=== PATIENT | female | born 1995 | race Caucasian/White ===

== ENCOUNTER 2019-01-30 00:18 | Inpatient (IN) | payer BC ==
[2019-01-30] MEDS ORDERED: Misoprostol 400 MCG (4 X 100 MCG TAB) RECTAL PRN (00:32)
[2019-01-30] MEDS ORDERED: Lactated Ringers 500 ML IV ONE (00:32)
[2019-01-30] MEDS ORDERED: Carboprost Tromethamine 250 MCG/1 ML Amp IM PRN (00:32)
[2019-01-30] MEDS ORDERED: Sodium Chloride 0.9% 10 ML Syringe FLUSH PRN (00:32)
[2019-01-30] MEDS ORDERED: Tranexamic Acid 1,000 MG in Sodium Chloride 0.9% 100 ML IV PRN (00:32)
[2019-01-30] MEDS ORDERED: Lidocaine 1% 30 ML SDV INJECT PRN (00:32)
[2019-01-30] MEDS ORDERED: Methylergonovine 0.2 MG/1 ML Amp IM PRN (00:32)
[2019-01-30] MEDS ORDERED: Ondansetron 4 MG/2 ML SDV IV PRN (00:32)
[2019-01-30] MEDS ORDERED: fentaNYL 100 MCG/2 ML SDV IVPUSH PRN (00:32)
[2019-01-30] MEDS ORDERED: Nalbuphine 10 MG/1 ML Vial IM PRN (00:36)
[2019-01-30] MEDS ORDERED: Nalbuphine 10 MG/1 ML Vial IV PRN (00:36)
--- NOTE | 2019-01-30 00:38 | PCM.LDHP ---
L&D History of Present Illness - General Date of Service: 02/01/19 Admit Problem/Dx: Patient Status Order with Admit Dx/Problem 01/30/19 00:32 Patient Status [ADT] Routine Admission Diagnosis/Problem Admission Diagnosis/Problem care Source of Information: Patient History Limitations: Reports: No Limitations - History of Present Illness Introduction:: 23-year-old at 40w0d presents to L&D for elective IOL at term. Patient has been feeling well. Baby has been active. Some [place] contractions but nothing regular. No vaginal bleeding or leaking of fluids. No headache or vision changes. - Related Data Allergies/Adverse Reactions: Allergies Allergy/AdvReac Type Severity Reaction Status Date / Time seasonal Allergy Sneezing Uncoded 03/03/15 22:17 Home Medications: Home Meds Acetaminophen [Tylenol] 650 mg PO Q4H PRN tablet 02/01/19 [Rx] Docusate Sodium [Colace] 100 mg PO BID PRN cap 02/01/19 [Rx] Ibuprofen [Motrin] 800 mg PO Q8H PRN tablet 02/01/19 [Rx] Vit with Ca/FA/Iron [ Plus Iron] 1 each PO DAILY tablet [Rx] Past Medical History Psychiatric History: Reports: Anxiety - Past Surgical History HEENT Surgical History: Reports: Myringotomy w Tube(s) (x2), Tonsillectomy GI Surgical History: Reports: Appendectomy Social & Family History - Family History Oncologic: Reports: Skin (Mother) - Tobacco Use Smoking Status *Q: Never Smoker - Caffeine Use Caffeine Use: Reports: Soda - Alcohol Use Alcohol Use Frequency: Not Used in Over 6 Months - Recreational Drug Use Recreational Drug Use: No - Sexual History Sexual History: Reports: None - Living Situation & Occupation Living situation: Reports: Occupation: Employed H&P Review of Systems - Review of Systems: Review Of Systems: See Below General: Reports: No Symptoms HEENT: Reports: No Symptoms Pulmonary: Reports: No Symptoms Cardiovascular: Reports: No Symptoms Gastrointestinal: Reports: No Symptoms Genitourinary: Reports: No Symptoms Musculoskeletal: Reports: No Symptoms Skin: Reports: No Symptoms Psychiatric: Reports: No Symptoms Neurological: Reports: No Symptoms L&D Exam - Exam Exam: See Below - OB Specific Movement: Active Heart Tones: Present Heart Tones per Min: 135 Heart Rate (FHR) Variability: Moderate (6-25 bmp) Presentation: Vertex - Fay Score Fay Score Cervix Position: Posterior Fay Score Consistency: Soft Fay Score Effacement: 51-70% Fay Score Dilation: 3-4 cm Fay Score Infant's Station: -2 Fay Score Total: 7 - Exam General: Alert, Oriented HEENT: Posterior Pharynx Clear Lungs: Clear to Auscultation, Normal Respiratory Effort Cardiovascular: Regular Rate, Regular Rhythm. No: Systolic Murmur, Diastolic Murmur Extremities: Pedal Edema (Trace bilaterally) Skin: Warm, Dry, Intact - Patient Data Result Diagrams: 01/30/19 01:04 - Problem List (1) care in third trimester SNOMED Code(s): 665441324, 48159421, 69984200, 853014929, 592011675 ICD Code: Z34.93 - ENCNTR FOR SUPRVSN OF NORMAL PREG, UNSP, THIRD TRIMESTER Status: Acute Current Visit: Yes Problem List Initiated/Reviewed/Updated: Yes Orders Last 24hrs: Active Orders 24 hr Category Date Time Status Patient Status [ADT] Routine ADT 01/30/19 00:32 Ordered Communication Order [RC] ASDIRECTED Care 01/30/19 00:32 Ordered Communication Order [RC] ASDIRECTED Care 01/30/19 00:34 Ordered Communication Order [RC] ASDIRECTED Care 01/30/19 00:34 Ordered Communication Order [RC] ASDIRECTED Care 01/30/19 00:34 Ordered Communication Order [RC] ASDIRECTED Care 01/30/19 00:34 Ordered Communication Order [RC] ASDIRECTED Care 01/30/19 00:34 Ordered Heart Tones [RC] PER UNIT ROUTINE Care 01/30/19 00:32 Ordered Notify Provider Vital Signs OB [RC] ASDIRECTED Care 01/30/19 00:32 Ordered Notify Provider [RC] PRN Care 01/30/19 00:32 Ordered Notify Provider [RC] PRN Care 01/30/19 00:34 Ordered Notify Provider [RC] PRN Care 01/30/19 00:34 Ordered Notify Provider [RC] STAT Care 01/30/19 00:34 Ordered POC Labs [RC] ASDIRECTED Care 01/30/19 00:32 Ordered Pump Management, Intrathecal [RC] ASDIRECTED Care 01/30/19 00:32 Ordered Up ad Mamie [RC] ASDIRECTED Care 01/30/19 00:32 Ordered Vaginal Exam [RC] PRN Care 01/30/19 00:34 Ordered Vital Signs [RC] PER UNIT ROUTINE Care 01/30/19 00:32 Ordered Clear Liquid Diet [DIET] Diet 01/30/19 Lunch Ordered Regular Diet [DIET] Diet 01/30/19 Breakfast Ordered CBC W/O DIFF,HEMOGRAM [HEME] Routine Lab 01/30/19 00:32 Ordered Acetaminophen [Tylenol] Med 01/30/19 00:32 Ordered 650 mg PO Q4H PRN Carboprost Tromethamine [Hemabate DS] Med 01/30/19 00:32 Ordered 250 mcg IM ASDIRECTED PRN Lactated Ringers @ 125 MLS/HR(1000ml) Med 01/30/19 00:45 Ordered Lactated Ringers [Ringers, Lactated] 1,000 ml IV ASDIRECTED Lactated Ringers [Ringers, Lactated] 500 ml Med 01/30/19 00:32 Ordered IV .BOLUS Lidocaine 1% [Xylocaine-MPF 1%] Med 01/30/19 00:32 Ordered 30 ml INJECT ASDIRECTED PRN Methylergonovine [Methergine] Med 01/30/19 00:32 Ordered 0.2 mg IM ASDIRECTED PRN Nalbuphine [Nubain] Med 01/30/19 00:36 Ordered 10 mg IV Q3H PRN Nalbuphine [Nubain] Med 01/30/19 00:36 Ordered 20 mg IM Q3H PRN Ondansetron [Zofran] Med 01/30/19 00:32 Ordered 4 mg IV Q4H PRN Oxytocin 30 Units in NS @ 2 MUNITS/MIN(500ml) Med 01/30/19 00:45 Ordered Oxytocin/Normal Saline [Pitocin in NS 30 UNIT/500 ML] 30 unit in 500 ml IV TITRATE Sodium Chloride 0.9% [Saline Flush] Med 01/30/19 00:32 Ordered 10 ml FLUSH ASDIRECTED PRN Tranexamic Acid [Cyklokapron] 1,000 mg Med 01/30/19 00:32 Ordered Sodium Chloride 0.9% [Normal Saline] 100 ml IV ONETIME fentaNYL [Sublimaze] Med 01/30/19 00:32 Ordered 50 mcg IVPUSH Q1H PRN miSOPROStol [Cytotec] Med 01/30/19 00:34 Ordered 25 mcg VAG Q4H PRN miSOPROStol [Cytotec] Med 01/30/19 00:32 Ordered 800 mcg RECTAL ASDIRECTED PRN Saline Lock Insert [OM.PC] Routine Oth 01/30/19 00:32 Ordered Resuscitation Status Routine Resus Stat 01/30/19 00:32 Ordered Medication Orders Acetaminophen (Tylenol) 650 mg PO Q4H PRN PRN Reason: Pain (Mild 1-3) and fever Carboprost Tromethamine (Hemabate Ds) 250 mcg IM ASDIRECTED PRN PRN Reason: HEMORRHAGE Fentanyl (Sublimaze) 50 mcg IVPUSH Q1H PRN PRN Reason: Pain (moderate 4-6) Lactated Ringer's (Ringers, Lactated) 500 mls @ 999 mls/hr IV .BOLUS ONE Stop: 01/30/19 01:02 Tranexamic Acid 1,000 mg/ (Sodium Chloride) 110 mls @ 660 mls/hr IV ONETIME PRN PRN Reason: Bleeding Lactated Ringer's (Ringers, Lactated) 1,000 mls @ 125 mls/hr IV ASDIRECTED YE Oxytocin/Sodium Chloride (Pitocin In Ns 30 Unit/500 Ml) 30 unit in 500 mls @ 2 mls/hr IV TITRATE YE; Protocol Lidocaine HCl (Xylocaine-Mpf 1%) 30 ml INJECT ASDIRECTED PRN PRN Reason: Perineal Repair Methylergonovine Maleate (Methergine) 0.2 mg IM ASDIRECTED PRN PRN Reason: Hemorrhage Misoprostol (Cytotec) 800 mcg RECTAL ASDIRECTED PRN PRN Reason: Hemorrhage Misoprostol (Cytotec) 25 mcg VAG Q4H PRN PRN Reason: cervical ripening Nalbuphine HCl (Nubain) 20 mg IM Q3H PRN PRN Reason: Pain Nalbuphine HCl (Nubain) 10 mg IV Q3H PRN PRN Reason: Pain Ondansetron HCl (Zofran) 4 mg IV Q4H PRN PRN Reason: Nausea/Vomiting Sodium Chloride (Saline Flush) 10 ml FLUSH ASDIRECTED PRN PRN Reason: Keep Vein Open Assessment/Plan Comment:: 23-year-old at 40w0d presents for elective IOL Cytotec placed at 0100. Patient was checked at 0515 and had minimal change so a 2nd dose of Cytotec was placed. Patient started to feel uncomfortable around 0715. Patient was checked at 0820 and was noted to be 7 cm dilated with a bulging bag. As patient desires an intrathecal, AROM was not performed at this time. [employer] was contacted for intrathecal placement. AROM when able. Anticipate . Gabbie Dillard MD
[2019-01-30] MEDS ORDERED: Oxytocin/Normal Saline 30 UNIT/500 ML BAG IV SCH (00:45)
[2019-01-30] MEDS: Misoprostol 25 MCG (1/4 of 100 MCG) Tab VAG PRN ×2 (01:19→05:18)
[2019-01-30] MEDS: Acetaminophen 325 MG Tab PO PRN ×2 (07:38→19:52)
[2019-01-30] MEDS ORDERED: fentaNYL 100 MCG/2 ML SDV ONE (08:51)
[2019-01-30] MEDS ORDERED: EPINEPHrine 1 MG/1 ML Amp ONE (08:51)
[2019-01-30] MEDS ORDERED: Sodium Bicarbonate 4.2% 2.5 MEQ/5 ML SDV ONE (08:52)
[2019-01-30] MEDS: Lactated Ringers 1,000 ML IV SCH ×2 (08:52→09:14)
[2019-01-30] MEDS ORDERED: Benzocaine/Menthol 20%-0.5% Spray 56 GM Canister TOP PRN (11:36)
[2019-01-30] MEDS ORDERED: Simethicone 80 MG Tab.Chew PO PRN (11:36)
[2019-01-30] MEDS ORDERED: Oxytocin 10 Units/1 ML SDV IM PRN (11:36)
--- NOTE | 2019-01-30 11:38 | PCM.DEL ---
L & D Note - General Info Date of Service: 01/30/19 Mother's Due Date: 01/30/19 - Delivery Note Labor: Augmented by ARM Cervical Ripening Method: Misoprostil Delivery Outcome: Livebirth Delivery Method: Spontaneous Vaginal Delivery-Single Presentation: Vertex Nuchal Cord: None (Body cord was noted) Anesthesia Type: Intrathecal Amniotic Fluid Description: Clear Episiotomy Type: None Laceration: 2nd Degree, Perineal Suture type: Vicryl Suture size: 3-0 Placenta: Intact, Spontaneous Cord: 3 Vessels Estimated Blood Loss: 200 : Bulb Syringe, Stimulated, Warmed Provider: Gabbie Dillard Score 1 min: 7 Score 5 min: 9 Delivery Comments (Free Text/Narrative):: 23-year-old presented to L&D for elective IOL at 40w0d. Cytotec x2 was used for cervical ripening. About 2 hours after the 2nd dose, patient started experiencing increased contractions. At 0820, patient underwent a cervical exam and was noted to be 7 cm with a bulging forebag. Patient received an intrathecal shortly after and rapidly progressed to complete dilation with head at +2 station. AROM was performed. Patient then pushed for about 8 minutes then delivered a viable male infant. Umbilical cord was tangled around infant's arms and back. Cord was reduced, and infant was placed on patient's abdomen. Apgars were noted to be 7 and 9 at 1 and 5 minutes respectively. Cord was clamped x2 and cut by 's father. Cord blood was collected. Placenta delivered about 3 minutes after delivery of the infant. It was noted to be intact. Pitocin was started, and uterus was noted to be to firm. Bilateral periurethral abrasions were noted. A second degree perineal laceration was noted and was repaired with 3-0 Vicryl in the usual fashion. Uterus was again assessed and noted to be firm. Bleeding was appropriate. Patient tolerated the procedure well, and there were no immediate complications. Induction Criteria - Fay Score Fay Score Dilation: 3-4 cm Fay Score Effacement: 60-70% Fay Score Infant's Station: -2 Fay Score Consistency: Soft Fay Score Cervix Position: Posterior Fay Score Total: 7 Fay Score Presenting Part: Reports: Cephalic - Induction Gestational Age >/= 39 wks: Yes Estimated Pelvis: Reports: Adequate Reassuring Monitoring Strip: Yes Absence of Tachy Systole: Yes - General Info Date of Service: 02/01/19 - Patient Data Vitals - Most Recent: Last Vital Signs Temp 36.4 C 01/30/19 04:53 Pulse 57 L 01/30/19 04:53 Resp 18 01/30/19 04:53 BP 115/64 01/30/19 04:53 Pulse Ox Weight - Most Recent: 88.451 kg Lab Results Last 24 Hours: Laboratory Results - last 24 hr 01/30/19 Range/Units 01:04 WBC 8.4 (5.0-10.0) 10^3/uL RBC 3.92 L (4.2-5.4) 10^6/uL Hgb 11.5 L (12.0-16.0) g/dL Hct 35.8 L (37.0-47.0) % MCV 91.3 (80-100) fL MCH 29.3 (27.0-34.0) pg MCHC 32.1 L (33.0-35.0) g/dL Plt Count 200 (150-450) 10^3/uL Med Orders - Current: Current Medications Acetaminophen (Tylenol) 650 mg PO Q4H PRN PRN Reason: Pain (Mild 1-3) and fever Last Admin: 01/30/19 07:38 Dose: 650 mg Carboprost Tromethamine (Hemabate Ds) 250 mcg IM ASDIRECTED PRN PRN Reason: HEMORRHAGE Tranexamic Acid 1,000 mg/ (Sodium Chloride) 110 mls @ 660 mls/hr IV ONETIME PRN PRN Reason: Bleeding Oxytocin/Sodium Chloride (Pitocin In Ns 30 Unit/500 Ml) 30 unit in 500 mls @ 2 mls/hr IV TITRATE YE; Protocol Methylergonovine Maleate (Methergine) 0.2 mg IM ASDIRECTED PRN PRN Reason: Hemorrhage Misoprostol (Cytotec) 800 mcg RECTAL ASDIRECTED PRN PRN Reason: Hemorrhage Misoprostol (Cytotec) 25 mcg VAG Q4H PRN PRN Reason: cervical ripening Last Admin: 01/30/19 05:18 Dose: 25 mcg Ondansetron HCl (Zofran) 4 mg IV Q4H PRN PRN Reason: Nausea/Vomiting Last Admin: 01/30/19 08:51 Dose: 4 mg Sodium Chloride (Saline Flush) 10 ml FLUSH ASDIRECTED PRN PRN Reason: Keep Vein Open Discontinued Medications Epinephrine HCl (Adrenalin) Confirm Administered Dose 1 mg .ROUTE .STK-MED ONE Stop: 01/30/19 08:52 Fentanyl (Sublimaze) 50 mcg IVPUSH Q1H PRN PRN Reason: Pain (moderate 4-6) Fentanyl (Sublimaze) Confirm Administered Dose 100 mcg .ROUTE .STK-MED ONE Stop: 01/30/19 08:52 Lactated Ringer's (Ringers, Lactated) 500 mls @ 999 mls/hr IV .BOLUS ONE Stop: 01/30/19 01:02 Lactated Ringer's (Ringers, Lactated) 1,000 mls @ 125 mls/hr IV ASDIRECTED YE Last Admin: 01/30/19 09:14 Dose: 125 mls/hr Lidocaine HCl (Xylocaine-Mpf 1%) 30 ml INJECT ASDIRECTED PRN PRN Reason: Perineal Repair Nalbuphine HCl (Nubain) 20 mg IM Q3H PRN PRN Reason: Pain Nalbuphine HCl (Nubain) 10 mg IV Q3H PRN PRN Reason: Pain Sodium Bicarbonate (Sodium Bicarbonate 4.2%) Confirm Administered Dose 0.5 meq .ROUTE .STK-MED ONE Stop: 01/30/19 08:53 Sufentanil Citrate (Sufenta) Confirm Administered Dose 50 mcg .ROUTE .STK-MED ONE Stop: 01/30/19 08:52 - Exam General: Alert, Oriented Lungs: Clear to Auscultation, Normal Respiratory Effort Cardiovascular: Regular Rate, Regular Rhythm, No Murmurs Extremities: Pedal Edema (Trace bilaterally) Skin: Warm, Dry, Intact Neurological: No New Focal Deficit - Problem List & Annotations (1) (normal spontaneous vaginal delivery) SNOMED Code(s): 56478044, 453216127 Code(s): O80 - ENCOUNTER FOR FULL-TERM UNCOMPLICATED DELIVERY Status: Acute Current Visit: Yes (2) Perineal laceration during delivery, delivered SNOMED Code(s): 986271075 Code(s): O70.9 - PERINEAL LACERATION DURING DELIVERY, UNSPECIFIED Status: Acute Current Visit: Yes (3) care in third trimester SNOMED Code(s): 324349936, 35035401, 93486971, 500731346, 020189701 Code(s): Z34.93 - ENCNTR FOR SUPRVSN OF NORMAL PREG, UNSP, THIRD TRIMESTER Status: Acute Current Visit: Yes - Problem List Review Problem List Initiated/Reviewed/Updated: Yes - My Orders Last 24 Hours: My Active Orders 01/30/19 00:32 Patient Status [ADT] Routine Notify Provider Vital Signs OB [RC] ASDIRECTED POC Labs [RC] ASDIRECTED Pump Management, Intrathecal [RC] ASDIRECTED Up ad Mamie [RC] ASDIRECTED Vital Signs [RC] PER UNIT ROUTINE Acetaminophen [Tylenol] 650 mg PO Q4H PRN Carboprost Tromethamine [Hemabate DS] 250 mcg IM ASDIRECTED PRN Methylergonovine [Methergine] 0.2 mg IM ASDIRECTED PRN Ondansetron [Zofran] 4 mg IV Q4H PRN Sodium Chloride 0.9% [Saline Flush] 10 ml FLUSH ASDIRECTED PRN Tranexamic Acid [Cyklokapron] 1,000 mg Sodium Chloride 0.9% [Normal Saline] 100 ml IV ONETIME miSOPROStol [Cytotec] 800 mcg RECTAL ASDIRECTED PRN Saline Lock Insert [OM.PC] Routine Resuscitation Status Routine 01/30/19 00:34 Communication Order [RC] ASDIRECTED Communication Order [RC] ASDIRECTED Communication Order [RC] ASDIRECTED Communication Order [RC] ASDIRECTED Communication Order [RC] ASDIRECTED Notify Provider [RC] PRN Notify Provider [RC] PRN Notify Provider [RC] STAT Vaginal Exam [RC] PRN miSOPROStol [Cytotec] 25 mcg VAG Q4H PRN 01/30/19 00:45 Oxytocin/Normal Saline [Pitocin in NS 30 UNIT/500 ML] 30 unit in 500 ml IV TITRATE 01/30/19 11:36 Vital Signs [RC] PFP Consult to Diesel Powerplant Supervisor [CONS] Routine Benzocaine/Menthol [Dermoplast Pain Relief [place]] See Dose Instructions TOP Q4H PRN Docusate Sodium [Colace] 100 mg PO BID PRN Ibuprofen [Motrin] 800 mg PO Q8H PRN Oxytocin [Pitocin] 10 unit IM ONETIME PRN Simethicone 80 mg PO Q4H PRN Assess Lochia [WOMSER] Per Unit Routine Assess Uterine Involution [WOMSER] Per Unit Routine Breast Pump [WOMSER] Per Unit Routine Ice Therapy [OM.PC] Per Unit Routine Perineal Care [OM.PC] Per Unit Routine Sitz Bath [OM.PC] Per Unit Routine 01/30/19 Lunch Regular Diet [DIET] 01/31/19 09:00 Vit with Ca/FA/Iron [ Plus Iron] 1 each PO DAILY - Assessment Assessment:: 23-year-old, now , status post at 40w0d - Plan Plan:: 1. Initiate routine cares. 2. Mother plans to breastfeed. consultation placed. 3. Anticipate discharge 01/30/19 Gabbie Dillard MD
[2019-01-30] MEDS: Ibuprofen 800 MG Tab PO PRN (16:23)
[2019-01-31] MEDS: Ibuprofen 800 MG Tab PO PRN ×3 (01:05→18:03)
[2019-01-31] MEDS: Acetaminophen 325 MG Tab PO PRN ×4 (01:06→18:03)
[2019-01-31] MEDS: Prenatal Multivitamin with Calcium/Folic Acid/Iron Tab PO SCH (08:12)
[2019-01-31] MEDS: Docusate Sodium 100 MG Cap PO PRN ×2 (08:12→20:08)
--- NOTE | 2019-01-31 14:57 | PCM.PNPP ---
- General Info Date of Service: 01/31/19 Subjective Update: 23-year-old now PPD#1 status post . Patient is feeling well. Pain is well controlled. Vaginal bleeding is decreasing. Patient is but is having difficulties. She notes significant pain with nursing. Patient does have inverted nipples. She is applying lanolin and using soothies between feeds. She is working with nursing staff and . She does desire to continue to work with . Functional Status: Reports: Pain Controlled, Tolerating Diet, Urinating. Denies : New Symptoms - Review of Systems General: Reports: No Symptoms HEENT: Reports: No Symptoms Pulmonary: Reports: No Symptoms Cardiovascular: Reports: No Symptoms Gastrointestinal: Reports: No Symptoms Genitourinary: Reports: No Symptoms Skin: Reports: No Symptoms - General Info Date of Service: 01/31/19 - Patient Data Vital Signs - Most Recent: Last Vital Signs Temp 36.6 C 01/31/19 08:00 Pulse 63 01/31/19 08:00 Resp 18 01/31/19 08:00 BP 120/78 01/31/19 08:00 Pulse Ox 99 01/31/19 08:00 Weight - Most Recent: 88.451 kg I&O - Last 24 Hours: Intake & Output 01/30/19 01/31/19 01/31/19 22:59 06:59 14:59 Intake Total 2200 Balance 2200 Med Orders - Current: Current Medications Acetaminophen (Tylenol) 650 mg PO Q4H PRN PRN Reason: Pain (Mild 1-3) and fever Last Admin: 01/31/19 14:09 Dose: 650 mg Benzocaine/Menthol (Dermoplast Pain Relief [place]) 0 gm TOP Q4H PRN PRN Reason: Perineal comfort measures Last Admin: 01/30/19 13:53 Dose: 1 applic Carboprost Tromethamine (Hemabate Ds) 250 mcg IM ASDIRECTED PRN PRN Reason: HEMORRHAGE Docusate Sodium (Colace) 100 mg PO BID PRN PRN Reason: Constipation Last Admin: 01/31/19 08:12 Dose: 100 mg Tranexamic Acid 1,000 mg/ (Sodium Chloride) 110 mls @ 660 mls/hr IV ONETIME PRN PRN Reason: Bleeding Oxytocin/Sodium Chloride (Pitocin In Ns 30 Unit/500 Ml) 30 unit in 500 mls @ 2 mls/hr IV TITRATE YE; Protocol Last Titration: 01/30/19 13:05 Dose: 0 mls/hr Ibuprofen (Motrin) 800 mg PO Q8H PRN PRN Reason: Mild Pain or Fever, use 2nd Last Admin: 01/31/19 08:12 Dose: 800 mg Methylergonovine Maleate (Methergine) 0.2 mg IM ASDIRECTED PRN PRN Reason: Hemorrhage Misoprostol (Cytotec) 800 mcg RECTAL ASDIRECTED PRN PRN Reason: Hemorrhage Misoprostol (Cytotec) 25 mcg VAG Q4H PRN PRN Reason: cervical ripening Last Admin: 01/30/19 05:18 Dose: 25 mcg Ondansetron HCl (Zofran) 4 mg IV Q4H PRN PRN Reason: Nausea/Vomiting Last Admin: 01/30/19 08:51 Dose: 4 mg Oxytocin (Pitocin) 10 unit IM ONETIME PRN PRN Reason: Bleeding Prenat Multivit/[place]/Iron/Folic Ac ( Plus Iron) 1 each PO DAILY YE Last Admin: 01/31/19 08:12 Dose: 1 each Simethicone (Simethicone) 80 mg PO Q4H PRN PRN Reason: Gas Sodium Chloride (Saline Flush) 10 ml FLUSH ASDIRECTED PRN PRN Reason: Keep Vein Open Discontinued Medications Epinephrine HCl (Adrenalin) Confirm Administered Dose 1 mg .ROUTE .STK-MED ONE Stop: 01/30/19 08:52 Last Admin: 01/30/19 12:35 Dose: Not Given Fentanyl (Sublimaze) 50 mcg IVPUSH Q1H PRN PRN Reason: Pain (moderate 4-6) Fentanyl (Sublimaze) Confirm Administered Dose 100 mcg .ROUTE .STK-MED ONE Stop: 01/30/19 08:52 Last Admin: 01/30/19 12:35 Dose: Not Given Lactated Ringer's (Ringers, Lactated) 500 mls @ 999 mls/hr IV .BOLUS ONE Stop: 01/30/19 01:02 Last Admin: 01/30/19 17:52 Dose: Not Given Lactated Ringer's (Ringers, Lactated) 1,000 mls @ 125 mls/hr IV ASDIRECTED YE Last Admin: 01/30/19 09:14 Dose: 125 mls/hr Lidocaine HCl (Xylocaine-Mpf 1%) 30 ml INJECT ASDIRECTED PRN PRN Reason: Perineal Repair Nalbuphine HCl (Nubain) 20 mg IM Q3H PRN PRN Reason: Pain Nalbuphine HCl (Nubain) 10 mg IV Q3H PRN PRN Reason: Pain Sodium Bicarbonate (Sodium Bicarbonate 4.2%) Confirm Administered Dose 0.5 meq .ROUTE .STK-MED ONE Stop: 01/30/19 08:53 Last Admin: 01/30/19 12:35 Dose: Not Given Sufentanil Citrate (Sufenta) Confirm Administered Dose 50 mcg .ROUTE .STK-MED ONE Stop: 01/30/19 08:52 Last Admin: 01/30/19 12:35 Dose: Not Given - Interaction Disposition, : in Room with Family Infant Interaction: Holding Feeding: Attempted ; Nursed Fair/Poor Support Person: Significant Other - Recovery Exam Fundal Tone: Firm Fundal Level: At Umbilicus Fundal Placement: Midline Lochia Amount: Scant Lochia Color: Brownish Perineum Description: Intact, Minimal Bruising/Swelling Episiotomy/Laceration: Approximated Bladder Status: Nonpalpable, Voiding - Exam General: Alert, Oriented Lungs: Clear to Auscultation, Normal Respiratory Effort Cardiovascular: Regular Rate, Regular Rhythm, No Murmurs Skin: Warm, Dry, Intact - Problem List & Annotations (1) (normal spontaneous vaginal delivery) SNOMED Code(s): 17181190, 439072463 Code(s): O80 - ENCOUNTER FOR FULL-TERM UNCOMPLICATED DELIVERY Status: Acute Current Visit: Yes (2) Perineal laceration during delivery, delivered SNOMED Code(s): 947882553 Code(s): O70.9 - PERINEAL LACERATION DURING DELIVERY, UNSPECIFIED Status: Acute Current Visit: Yes (3) care in third trimester SNOMED Code(s): 870055053, 48822394, 91717574, 085727507, 709017155 Code(s): Z34.93 - ENCNTR FOR SUPRVSN OF NORMAL PREG, UNSP, THIRD TRIMESTER Status: Acute Current Visit: Yes - Problem List Review Problem List Initiated/Reviewed/Updated: Yes - My Orders Last 24 Hours: My Active Orders 01/31/19 09:00 Vit with Ca/FA/Iron [ Plus Iron] 1 each PO DAILY - Assessment Assessment:: 23-year-old, now , PPD#1 s/p at 40w0d - Plan Plan:: 1. Continue cares 2. Due to nipple pain, patient will pump for now and feed baby pumped colostrum with formula supplementation as needed 3. Anticipate discharge 02/01/19 Gabbie Dillard MD
[2019-02-01] MEDS: Ibuprofen 800 MG Tab PO PRN ×2 (01:50→10:22)
[2019-02-01] MEDS: Acetaminophen 325 MG Tab PO PRN (01:50)
[2019-02-01] MEDS: Docusate Sodium 100 MG Cap PO PRN (08:49)
[2019-02-01] MEDS: Prenatal Multivitamin with Calcium/Folic Acid/Iron Tab PO SCH (08:49)
[2019-02-01 09:07] VITALS: BP 127/70; PULSE 81
[2019-02-01] MEDS ORDERED: Sodium Bicarbonate 4.2% 2.5 MEQ/5 ML SDV ONE (09:52)
[2019-02-01] MEDS ORDERED: fentaNYL 100 MCG/2 ML SDV ITHECAL ONE (09:52)
[2019-02-01] MEDS ORDERED: EPINEPHrine 1 MG/1 ML Amp ONE (09:52)
--- NOTE | 2019-02-01 13:56 | PCM.DCSUM1 ---
Discharge Summary - Hospital Course HPI Initial Comments: 23-year-old PPD#2 status post at 40w0d Diagnosis: Stroke: No - Discharge Data Discharge Date: 02/01/19 Discharge Disposition: Home, Self-Care 01 Condition: Good - Referral to Home Health Primary Care Physician: Armida Dillard MD - Discharge Diagnosis/Problem(s) (1) (normal spontaneous vaginal delivery) SNOMED Code(s): 72248720, 892710982 ICD Code: O80 - ENCOUNTER FOR FULL-TERM UNCOMPLICATED DELIVERY Status: Acute Current Visit: Yes (2) Perineal laceration during delivery, delivered SNOMED Code(s): 105860044 ICD Code: O70.9 - PERINEAL LACERATION DURING DELIVERY, UNSPECIFIED Status: Acute Current Visit: Yes (3) care in third trimester SNOMED Code(s): 820967594, 50207237, 89449346, 477406044, 040669522 ICD Code: Z34.93 - ENCNTR FOR SUPRVSN OF NORMAL PREG, UNSP, THIRD TRIMESTER Status: Acute Current Visit: Yes - Patient Summary/Data Operative Procedure(s) Performed: None Complications: None Consults: Consultations 01/30/19 11:36 Consult to [employer] [CONS] Routine Labs Pending at D/C: None Recommended Follow-up Testing/Procedures: None Planned Operative Procedure(s) after DC: None Hospital Course: See subjective section - Patient Instructions Diet: Usual Diet as Tolerated Activity: As Tolerated, No Lifting Over 20 Pounds Driving: May Drive Today Showering/Bathing: May Shower Notify Provider of: Fever, Increased Pain, Swelling and Redness, Nausea and/or Vomiting - Discharge Plan *PRESCRIPTION DRUG MONITORING PROGRAM REVIEWED*: Not Applicable *COPY OF PRESCRIPTION DRUG MONITORING REPORT IN PATIENT KARL: Not Applicable Home Medications: Home Meds Acetaminophen [Tylenol] 650 mg PO Q4H PRN tablet 02/01/19 [Rx] Docusate Sodium [Colace] 100 mg PO BID PRN cap 02/01/19 [Rx] Ibuprofen [Motrin] 800 mg PO Q8H PRN tablet 02/01/19 [Rx] Vit with Ca/FA/Iron [ Plus Iron] 1 each PO DAILY tablet [Rx] Patient Handouts: Vaginal Delivery, Care of a Perineal Tear Referrals: Gabbie Dillard MD [Primary Care Provider] - (Please schedule 6 week appointment with primary care provider. ) - Discharge Summary/Plan Comment DC Time >30 min.: No Discharge Summary/Plan Comment: Discharge home today with follow-up in 6-8 weeks for routine check. For , continue pumping for the next 24 hours. Will see how things are going at baby's weight check tomorrow. Continue to apply APNO after each pumping session. Continue to use soothies nipple pads. - General Info Date of Service: 02/01/19 Functional Status: Reports: Pain Controlled, Tolerating Diet, Ambulating, Urinating - Review of Systems General: Reports: No Symptoms HEENT: Reports: No Symptoms Pulmonary: Reports: No Symptoms Cardiovascular: Reports: No Symptoms Gastrointestinal: Reports: No Symptoms Genitourinary: Reports: No Symptoms Musculoskeletal: Reports: No Symptoms Skin: Reports: No Symptoms - Patient Data Vitals - Most Recent: Last Vital Signs Temp 36.7 C 02/01/19 08:00 Pulse 81 02/01/19 08:00 Resp 18 02/01/19 08:00 BP 127/70 02/01/19 08:00 Pulse Ox 98 02/01/19 08:00 Weight - Most Recent: 88.451 kg I&O - Last 24 hours: Intake & Output 01/31/19 02/01/19 02/01/19 22:59 06:59 14:59 Intake Total 1070 Balance 1070 Med Orders - Current: Current Medications Discontinued Medications Acetaminophen (Tylenol) 650 mg PO Q4H PRN PRN Reason: Pain (Mild 1-3) and fever Last Admin: 02/01/19 01:50 Dose: 650 mg Benzocaine/Menthol (Dermoplast Pain Relief [place]) 0 gm TOP Q4H PRN PRN Reason: Perineal comfort measures Last Admin: 01/30/19 13:53 Dose: 1 applic Carboprost Tromethamine (Hemabate Ds) 250 mcg IM ASDIRECTED PRN PRN Reason: HEMORRHAGE Docusate Sodium (Colace) 100 mg PO BID PRN PRN Reason: Constipation Last Admin: 02/01/19 08:49 Dose: 100 mg Epinephrine HCl (Adrenalin) Confirm Administered Dose 1 mg .ROUTE .STK-MED ONE Stop: 01/30/19 08:52 Last Admin: 01/30/19 12:35 Dose: Not Given Epinephrine HCl (Adrenalin) 0.1 mg .XX .STK-MED ONE Stop: 02/01/19 09:53 Fentanyl (Sublimaze) 50 mcg IVPUSH Q1H PRN PRN Reason: Pain (moderate 4-6) Fentanyl (Sublimaze) Confirm Administered Dose 100 mcg .ROUTE .STK-MED ONE Stop: 01/30/19 08:52 Last Admin: 01/30/19 12:35 Dose: Not Given Fentanyl (Sublimaze) 30 mcg ITHECAL .STK-MED ONE Stop: 02/01/19 09:53 Lactated Ringer's (Ringers, Lactated) 500 mls @ 999 mls/hr IV .BOLUS ONE Stop: 01/30/19 01:02 Last Admin: 01/30/19 17:52 Dose: Not Given Tranexamic Acid 1,000 mg/ (Sodium Chloride) 110 mls @ 660 mls/hr IV ONETIME PRN PRN Reason: Bleeding Lactated Ringer's (Ringers, Lactated) 1,000 mls @ 125 mls/hr IV ASDIRECTED YE Last Admin: 01/30/19 09:14 Dose: 125 mls/hr Oxytocin/Sodium Chloride (Pitocin In Ns 30 Unit/500 Ml) 30 unit in 500 mls @ 2 mls/hr IV TITRATE YE; Protocol Last Titration: 01/30/19 13:05 Dose: 0 mls/hr Ibuprofen (Motrin) 800 mg PO Q8H PRN PRN Reason: Mild Pain or Fever, use 2nd Last Admin: 02/01/19 10:22 Dose: 800 mg Lidocaine HCl (Xylocaine-Mpf 1%) 30 ml INJECT ASDIRECTED PRN PRN Reason: Perineal Repair Methylergonovine Maleate (Methergine) 0.2 mg IM ASDIRECTED PRN PRN Reason: Hemorrhage Misoprostol (Cytotec) 800 mcg RECTAL ASDIRECTED PRN PRN Reason: Hemorrhage Misoprostol (Cytotec) 25 mcg VAG Q4H PRN PRN Reason: cervical ripening Last Admin: 01/30/19 05:18 Dose: 25 mcg Nalbuphine HCl (Nubain) 20 mg IM Q3H PRN PRN Reason: Pain Nalbuphine HCl (Nubain) 10 mg IV Q3H PRN PRN Reason: Pain Ondansetron HCl (Zofran) 4 mg IV Q4H PRN PRN Reason: Nausea/Vomiting Last Admin: 01/30/19 08:51 Dose: 4 mg Oxytocin (Pitocin) 10 unit IM ONETIME PRN PRN Reason: Bleeding Prenat Multivit/[place]/Iron/Folic Ac ( Plus Iron) 1 each PO DAILY YE Last Admin: 02/01/19 08:49 Dose: 1 each Simethicone (Simethicone) 80 mg PO Q4H PRN PRN Reason: Gas Sodium Bicarbonate (Sodium Bicarbonate 4.2%) Confirm Administered Dose 0.5 meq .ROUTE .STK-MED ONE Stop: 01/30/19 08:53 Last Admin: 01/30/19 12:35 Dose: Not Given Sodium Bicarbonate (Sodium Bicarbonate 4.2%) 0.5 meq .XX .STK-MED ONE Stop: 02/01/19 09:53 Sodium Chloride (Saline Flush) 10 ml FLUSH ASDIRECTED PRN PRN Reason: Keep Vein Open Sufentanil Citrate (Sufenta) Confirm Administered Dose 50 mcg .ROUTE .STK-MED ONE Stop: 01/30/19 08:52 Last Admin: 01/30/19 12:35 Dose: Not Given Sufentanil Citrate (Sufenta) 20 mcg ITHECAL .STK-MED ONE Stop: 02/01/19 09:53 - Exam General: Reports: Alert, Oriented Lungs: Reports: Clear to Auscultation, Normal Respiratory Effort Cardiovascular: Reports: Regular Rate, Regular Rhythm, No Murmurs Back Exam: Reports: Normal Inspection Extremities: Normal Inspection Skin: Reports: Warm, Dry, Intact
== END 2019-02-01 11:00 | disposition home or self-care (01) | DRG 560 ==
LOC: DL.OBCHECK 00:18 → DL.OB 00:19 → OBSVTOIN 10:28
PROVIDERS: ADMIT Family Medicine; ATTEND Family Medicine
PROC: 10E0XZZ Delivery of Products of Conception, External Approach (ICD-10-PCS; principal; 2019-01-30)
PROC: 3E0P7VZ Introduction of Hormone into Female Reproductive, Via Natural or Artificial Opening (ICD-10-PCS; 2019-01-30)
PROC: 0KQM0ZZ Repair Perineum Muscle, Open Approach (ICD-10-PCS; 2019-01-30)
PROC: 10907ZC Drainage of Amniotic Fluid, Therapeutic from Products of Conception, Via Natural or Artificial Opening (ICD-10-PCS; 2019-01-30)
DX: O48.0 Post-term pregnancy (principal); Z79.899 Other long term (current) drug therapy; Z3A.40 40 weeks gestation of pregnancy; Z37.0 Single live birth; Z90.89 Acquired absence of other organs; Z90.49 Acquired absence of other specified parts of digestive tract; O70.1 Second degree perineal laceration during delivery; O69.82X0 Labor and delivery complicated by other cord entanglement, without compression, not applicable or unspecified
CPT/HCPCS: 36415; 59409; 85027; A9270-GY; J0171; J2405; J2590; J3010; J7120

== ENCOUNTER 2024-10-05 16:16 | Emergency (ER) | payer BC ==
[2024-10-05 16:47] LABS: BASOPHILS PERCENT AUTO 0.1 % (0.0-1.0); EOSINOPHILS PERCENT AUTO 1.9 % (1.0-3.0); HEMATOCRIT 42.4 % (37.0-47.0); LYMPHOCYTES PERCENT AUTO 26.5 % (20.5-50.1); MEAN CORPUSCULAR HEMOGLOBIN 29.8 pg (27.0-34.0); MEAN CORPUSCULAR VOLUME 90.2 fL (80-100); NEUTROPHILS PERCENT AUTO 64.5 % (42.2-75.2); PLATELET COUNT,PLT 301 10^3/uL (150-450); WHITE BLOOD CELL COUNT,WBC 7.2 10^3/uL (5.0-10.0)
[2024-10-05 16:50] VITALS: BP 121/77; PULSE 82
[2024-10-05] MEDS: fentaNYL 100 MCG/2 ML SDV IVPUSH ONE (16:56)
[2024-10-05] MEDS: Ondansetron 4 MG/2 ML SDV IVPUSH ONE (16:57)
[2024-10-05] MEDS: Sodium Chloride 0.9% 1,000 ML IV ONE (16:57)
[2024-10-05] MEDS: Sodium Chloride 0.9% 10 ML Syringe FLUSH PRN (16:57)
[2024-10-05 17:10] LABS: LACTIC ACID 0.5 mmol/L (0.4-2.0)
[2024-10-05 17:11] LABS: INR 0.9 (0.9-1.2); PROTHROMBIN TIME 9.8 SEC (9.0-12.0); PTT,PARTIAL THROMBOPLSTIN TIME 26.7 SEC (22.0-34.0)
[2024-10-05 17:17] LABS: A/G RATIO 0.9; ALANINE AMINOTRANSFERASE,ALT 34 U/L (14-59); ALBUMIN 3.4 g/dL (3.4-5.0); ALKALINE PHOSPHATASE 88 U/L (46-116); ANION GAP 9.7 mEq/L (7-13); ASPARTATE AMNIOTRANSFERASE,AST 34 U/L (15-37); BILIRUBIN TOTAL 0.4 mg/dL (0.2-1.0); BLOOD UREA NITROGEN,BUN 5 mg/dL (7-18); BUN/CREATININE RATIO 5.2 (No establ ref range); CALCIUM 9.2 mg/dL (8.5-10.1); CARBON DIOXIDE,CO2 27 mmol/L (21-32); CHLORIDE,CL 103 mmol/L (98-107); CREATININE 0.96 mg/dL (0.55-1.02); GLUCOSE RANDOM 87 mg/dL (70-99); LIPASE 25 U/L (16-77); POTASSIUM,K 3.7 mmol/L (3.5-5.1); PROTEIN TOTAL,TP 7.3 g/dL (6.4-8.2); SODIUM,NA 136 mmol/L (136-145)
[2024-10-05 17:18] LABS: ESTIMATED GFR 81 mL/min (>=60)
[2024-10-05 17:35] LABS: APPEARANCE,URINE CLEAR (CLEAR); BILIRUBIN,URINE NEGATIVE (NEGATIVE); COLOR,URINE YELLOW (YELLOW); GLUCOSE,URINE NEGATIVE (NEGATIVE); KETONES,URINE 15 (NEGATIVE); LEUKOCYTE ESTERASE,URINE NEGATIVE (NEGATIVE); NITRITE,URINE NEGATIVE (NEGATIVE); OCCULT BLOOD,URINE MODERATE (NEGATIVE); PROTEIN,URINE NEGATIVE (NEGATIVE); UROBILINOGEN,URINE 0.2 mg/dL (0.2-1.0)
[2024-10-05 17:48] LABS: BACTERIA,URINE FEW /HPF (0-FEW/HPF); EPITHELIAL CELLS,URINE FEW /HPF (NOT SEEN); MUCUS,URINE MODERATE /LPF (NOT SEEN); RBC,URINE 0-5 /HPF (0-5)
== END 2024-10-05 17:44 | disposition home or self-care (01) ==
LOC: DL.ED 16:16
DX: A05.9 Bacterial foodborne intoxication, unspecified (principal); Z91.09 Other allergy status, other than to drugs and biological substances; Z90.49 Acquired absence of other specified parts of digestive tract; Z79.899 Other long term (current) drug therapy
CPT/HCPCS: 36415; 80053; 81001; 83605; 83690; 84703; 85025; 85610; 85730; 96361; 96374; 96375; 99284; J2405; J3010; J7030; 99283

== ENCOUNTER 2024-11-18 09:58 | Emergency (ER) | payer BC ==
[2024-11-18 10:12] LABS: APPEARANCE,URINE SLIGHTLY CLOUDY (CLEAR); GLUCOSE,URINE NEGATIVE (NEGATIVE); OCCULT BLOOD,URINE LARGE (NEGATIVE)
[2024-11-18 10:27] LABS: EPITHELIAL CELLS,URINE FEW /HPF (NOT SEEN)
[2024-11-18] MEDS: Nitrofurantoin Monohydrate/Macrocrystalline 100 MG Cap PO SCH (10:35)
[2024-11-18 10:41] VITALS: BP 105/71; PULSE 78
== END 2024-11-18 10:40 | disposition home or self-care (01) ==
LOC: DL.ED 09:58
DX: N39.0 Urinary tract infection, site not specified (principal); Z91.09 Other allergy status, other than to drugs and biological substances; Z79.899 Other long term (current) drug therapy
CPT/HCPCS: 81001; 87086; 87088; 87186; 99283; A9270